=== PATIENT | male | born 1970 | race Caucasian/White ===

== ENCOUNTER 2020-07-08 19:02 | Emergency (ER) | payer BC, OTHER ==
[2020-07-08] MEDS ORDERED: Alum Hydrox/Mag Hydrox/Simeth 15 ML, Lidocaine 2% 15 ML PO ONE ×2 (21:12)
[2020-07-08] MEDS ORDERED: Ondansetron 4 MG Tab.DIS PO ONE (21:13)
--- NOTE | 2020-07-08 21:15 | EDM.PDOC ---
ED HPI GENERAL MEDICAL PROBLEM - General Chief Complaint: Abdominal Pain Stated Complaint: ABDOMINAL PAIN Time Seen by Provider: 07/08/20 21:07 Source of Information: Reports: Patient, Family, RN Notes Reviewed History Limitations: Reports: No Limitations - History of Present Illness INITIAL COMMENTS - FREE TEXT/NARRATIVE: 49-year-old gentleman presents emergency department today complaint of epigastric pain, he states the pain came on suddenly at about 330 this afternoon has lightened up some initially was a 10 out of 10 now is about 7 out of 10 does have a history of gastric bypass no history of coronary artery disease - Related Data Allergies Allergy/AdvReac Type Severity Reaction Status Date / Time Penicillins Allergy Vomiting Verified 07/08/20 19:36 sucralfate [From Carafate] Allergy Vomiting Verified 07/08/20 19:36 Home Meds: Home Meds Losartan [Cozaar] 1 tab PO DAILY 07/08/20 [History] Sertraline [Zoloft] 1 tab PO DAILY 07/08/20 [History] buPROPion [Wellbutrin SR] 1 tab PO DAILY 07/08/20 [History] Past Medical History Cardiovascular History: Reports: Hypertension Psychiatric History: Reports: Depression - Past Surgical History GI Surgical History: Reports: Bariatric Procedure, Cholecystectomy Social & Family History - Tobacco Use Tobacco Use Status *Q: Never Tobacco User - Alcohol Use Number of Drinks Per Day: 8 ED ROS GENERAL - Review of Systems Review Of Systems: See Below Constitutional: Reports: No Symptoms Respiratory: Reports: No Symptoms Cardiovascular: Reports: No Symptoms GI/Abdominal: Reports: Abdominal Pain. Denies: Nausea, Vomiting : Reports: No Symptoms ED EXAM, GI/ABD - Physical Exam Exam: See Below Exam Limited By: No Limitations General Appearance: Alert, WD/WN, No Apparent Distress Respiratory/Chest: No Respiratory Distress, Lungs Clear, Normal Breath Sounds, No Accessory Muscle Use, Chest Non-Tender Cardiovascular: Regular Rate, Rhythm, No Murmur GI/Abdominal Exam: Soft, Tender (Epigastric region) Extremities: No Pedal Edema Course - Vital Signs Last Recorded V/S: Last Vital Signs Temp 97.1 F 07/08/20 19:44 Pulse 83 07/08/20 19:44 Resp 14 07/08/20 19:44 BP 157/91 H 07/08/20 19:44 Pulse Ox 98 07/08/20 19:44 - Orders/Labs/Meds Orders: Active Orders 24 hr Category Date Time Status Peripheral IV Care [RC] . DIRECTED Care 07/08/20 23:18 Active Pantoprazole [ProTONIX IV] Med 07/09/20 01:00 Active 80 mg IVPUSH .BOLUS Sodium Chloride 0.9% [Normal Saline] 1,000 ml Med 07/08/20 23:30 Active IV ASDIRECTED Sodium Chloride 0.9% [Normal Saline] 100 ml Med 07/08/20 23:30 Active IV ASDIRECTED Sodium Chloride 0.9% [Saline Flush] Med 07/08/20 23:18 Active 10 ml FLUSH ASDIRECTED PRN Peripheral IV Insertion Adult [OM.PC] Urgent Oth 07/08/20 23:18 Ordered Medication Orders Sodium Chloride (Normal Saline) 1,000 mls @ 500 mls/hr IV ASDIRECTED VENECIA Last Admin: 07/08/20 23:42 Dose: 500 mls/hr Documented by: GOSIA Sodium Chloride (Normal Saline) 100 mls @ 3.5 mls/sec IV ASDIRECTED VENECIA Last Admin: 07/09/20 00:02 Dose: 3.5 mls/sec Documented by: ALL Pantoprazole Sodium (Protonix Iv) 80 mg IVPUSH .BOLUS VENECIA Sodium Chloride (Saline Flush) 10 ml FLUSH ASDIRECTED PRN PRN Reason: Keep Vein Open Last Admin: 07/09/20 00:02 Dose: 10 ml Documented by: ALL Labs: Laboratory Tests 07/08/20 07/08/20 07/08/20 Range/Units 21:22 21:24 21:24 WBC 5.3 (4.5-11.0) K/uL RBC 3.99 L (4.30-5.90) M/uL Hgb 13.6 (12.0-15.0) g/dL Hct 39.6 L (40.0-54.0) % MCV 99 H (80-98) fL MCH 34 H (27-31) pg MCHC 34 (32-36) % Plt Count 108 L (150-400) K/uL Neut % (Auto) 70 H (36-66) % Lymph % (Auto) 20 L (24-44) % [place] % (Auto) 8 H (2-6) % Eos % (Auto) 1 L (2-4) % Baso % (Auto) 0 (0-1) % Sodium 133 L (140-148) mmol/L Potassium 4.2 (3.6-5.2) mmol/L Chloride 97 L (100-108) mmol/L Carbon Dioxide 25 (21-32) mmol/L Anion Gap 15.2 H (5.0-14.0) mmol/L BUN 13 (7-18) mg/dL Creatinine 1.2 (0.8-1.3) mg/dL Est Cr Clr Drug Dosing 86.58 mL/min Estimated GFR (MDRD) > 60 (>60) Glucose 89 (74-106) mg/dL Lactic Acid (0.4-2.0) mmol/L Calcium 8.5 (8.5-10.1) mg/dL Total Bilirubin 0.6 (0.2-1.0) mg/dL AST 115 H (15-37) U/L ALT 118 H (12-78) U/L Alkaline Phosphatase 104 (46-116) U/L Troponin I < 0.017 (0.000-0.056) ng/mL Total Protein 6.7 (6.4-8.2) g/dL Albumin 3.6 (3.4-5.0) g/dL Globulin 3.1 (2.3-3.5) g/dL Albumin/Globulin Ratio 1.2 (1.2-2.2) Lipase 151 (73-393) U/L 07/08/20 Range/Units 21:24 WBC (4.5-11.0) K/uL RBC (4.30-5.90) M/uL Hgb (12.0-15.0) g/dL Hct (40.0-54.0) % MCV (80-98) fL MCH (27-31) pg MCHC (32-36) % Plt Count (150-400) K/uL Neut % (Auto) (36-66) % Lymph % (Auto) (24-44) % [place] % (Auto) (2-6) % Eos % (Auto) (2-4) % Baso % (Auto) (0-1) % Sodium (140-148) mmol/L Potassium (3.6-5.2) mmol/L Chloride (100-108) mmol/L Carbon Dioxide (21-32) mmol/L Anion Gap (5.0-14.0) mmol/L BUN (7-18) mg/dL Creatinine (0.8-1.3) mg/dL Est Cr Clr Drug Dosing mL/min Estimated GFR (MDRD) (>60) Glucose (74-106) mg/dL Lactic Acid 1.8 (0.4-2.0) mmol/L Calcium (8.5-10.1) mg/dL Total Bilirubin (0.2-1.0) mg/dL AST (15-37) U/L ALT (12-78) U/L Alkaline Phosphatase (46-116) U/L Troponin I (0.000-0.056) ng/mL Total Protein (6.4-8.2) g/dL Albumin (3.4-5.0) g/dL Globulin (2.3-3.5) g/dL Albumin/Globulin Ratio (1.2-2.2) Lipase (73-393) U/L Meds: Medications Generic Name Dose Route Start Last Admin Trade Name Freq PRN Reason Stop Dose Admin Sodium Chloride 1,000 mls @ 500 mls/hr 07/08/20 23:30 07/08/20 23:42 Normal Saline IV 500 mls/hr ASDIRECTED VENECIA Administration Sodium Chloride 100 mls @ 3.5 mls/sec 07/08/20 23:30 07/09/20 00:02 Normal Saline IV 3.5 mls/sec ASDIRECTED VENECIA Administration Pantoprazole Sodium 80 mg 07/09/20 01:00 Protonix Iv IVPUSH .BOLUS VENECIA Sodium Chloride 10 ml 07/08/20 23:18 07/09/20 00:02 Saline Flush FLUSH 10 ml ASDIRECTED PRN Administration Keep Vein Open Discontinued Medications Generic Name Dose Route Start Last Admin Trade Name Freq PRN Reason Stop Dose Admin Al Hydroxide/Mg Hydroxide 15 0 ml 07/08/20 21:12 07/08/20 21:19 ml/ Lidocaine HCl 15 ml PO 07/08/20 21:13 30 ml ONETIME ONE Administration Fentanyl 50 mcg 07/08/20 23:18 07/08/20 23:37 Sublimaze IVPUSH 07/08/20 23:19 50 mcg ONETIME ONE Administration Iopamidol 148 ml 07/08/20 23:23 07/09/20 00:01 Isovue-300 (61%) IV 07/08/20 23:24 148 ml ONETIME ONE Administration Ondansetron HCl 4 mg 07/08/20 21:13 07/08/20 21:21 Zofran Odt PO 07/08/20 21:14 4 mg ONETIME ONE Administration Prochlorperazine Edisylate 5 mg 07/08/20 23:25 07/08/20 23:38 Compazine IVPUSH 07/08/20 23:26 5 mg ONETIME ONE Administration Sodium Chloride 10 ml 07/08/20 23:23 07/08/20 23:37 Saline Flush FLUSH 07/08/20 23:24 10 ml ONETIME ONE Administration Departure - Departure Time of Disposition: 01:04 Disposition: Home, Self-Care 01 Condition: Fair Clinical Impression: Abdominal pain Qualifiers: Abdominal location: epigastric Qualified Code(s): R10.13 - Epigastric pain - Discharge Information Instructions: Abdominal Pain, Adult, [id number] Referrals: Marcy Bonilla MD [Primary Care Provider] - Forms: ED Department Discharge Additional Instructions: Start the Protonix 20 mg once a day can start tomorrow, use the Percocet as needed for pain control, please call Dr. Dias's clinic on Friday for an appointment time Sepsis Event Note (ED) - Evaluation Sepsis Screening Result: No Definite Risk - Focused Exam Vital Signs: Vital Signs Temp Pulse Resp BP Pulse Ox 07/08/20 19:44 97.1 F 83 14 157/91 H 98 - My Orders Last 24 Hours: My Active Orders 07/08/20 23:18 Peripheral IV Care [RC] . DIRECTED Sodium Chloride 0.9% [Saline Flush] 10 ml FLUSH ASDIRECTED PRN Peripheral IV Insertion Adult [OM.PC] Urgent 07/08/20 23:30 Sodium Chloride 0.9% [Normal Saline] 1,000 ml IV ASDIRECTED Sodium Chloride 0.9% [Normal Saline] 100 ml IV ASDIRECTED 07/09/20 01:00 Pantoprazole [ProTONIX IV] 80 mg IVPUSH .BOLUS - Assessment/Plan Last 24 Hours: My Active Orders 07/08/20 23:18 Peripheral IV Care [RC] . DIRECTED Sodium Chloride 0.9% [Saline Flush] 10 ml FLUSH ASDIRECTED PRN Peripheral IV Insertion Adult [OM.PC] Urgent 07/08/20 23:30 Sodium Chloride 0.9% [Normal Saline] 1,000 ml IV ASDIRECTED Sodium Chloride 0.9% [Normal Saline] 100 ml IV ASDIRECTED 07/09/20 01:00 Pantoprazole [ProTONIX IV] 80 mg IVPUSH .BOLUS Plan: Assessment Acuity = acute Site and laterality = epigastric pain Etiology = unknown Manifestations = none Location of injury = Home Lab values = CBC, CMP unremarkable except for AST elevated 115 ALT elevated 118 consistent with elevated liver enzymes troponin is negative CT scan shows no acute process Plan Call discussed case Dr. Dias at 00 30 recommended IV Protonix follow-up with him in clinic on Friday or Friday next week prescription written for oxycodone 5/325 1 tab p.o. 3 times daily as needed total #10 provided for additional pain control This note was dictated using [employer] voice recognition software please call with any questions on syntax or grammar.
[2020-07-08] MEDS ORDERED: fentaNYL 100 MCG/2 ML SDV IVPUSH ONE (23:18)
[2020-07-08] MEDS ORDERED: Sodium Chloride 0.9% 10 ML Syringe FLUSH PRN (23:18)
[2020-07-08] MEDS ORDERED: Iopamidol 612 MG/ML 500 ML Multipack Bottle IV ONE (23:23)
[2020-07-08] MEDS ORDERED: Sodium Chloride 0.9% 10 ML Syringe FLUSH ONE (23:23)
[2020-07-08] MEDS ORDERED: Prochlorperazine 10 MG/2 ML SDV IVPUSH ONE (23:25)
[2020-07-08] MEDS ORDERED: Sodium Chloride 0.9% 100 ML IV SCH (23:30)
[2020-07-08] MEDS ORDERED: Sodium Chloride 0.9% 1,000 ML IV SCH (23:30)
--- NOTE | 2020-07-09 00:44 | CRLCT ---
INDICATION: Epigastric pain TECHNIQUE: CT abdomen and pelvis acquired with 148 cc Isovue-300 IV contrast. COMPARISON: None FINDINGS: Lower chest: Unremarkable. Liver: Hepatic steatosis. Spleen: Unremarkable. Pancreas: Unremarkable. Gallbladder and bile ducts: S/p cholecystectomy. Adrenal glands: Unremarkable. Kidneys: Unremarkable. GI tract: Status post gastric bypass procedure. Appendix is not seen. No bowel wall thickening. Vascular structures: Unremarkable. Lymph nodes: Unremarkable. Miscellaneous: Nonspecific fat stranding in the mesenteric root. No free air or significant free fluid. Small fat containing left inguinal hernia. Pelvic Organs: Unremarkable. Bones: Unremarkable for age. IMPRESSION: Nonspecific fat stranding in the mesenteric root of unknown acuity. There is no bowel wall thickening. Status post gastric bypass procedure and cholecystectomy. Hepatic steatosis. Small fat containing left inguinal hernia. Please note that all CT scans at this facility use dose modulation, iterative reconstruction, and/or weight-based dosing when appropriate to reduce radiation dose to as low as reasonably achievable. Dictated by Marcy Chapman MD @ Jul 09 2020 12:35AM Signed by Dr. Marcy Chapman @ Jul 09 2020 12:43AM
[2020-07-09] MEDS ORDERED: Pantoprazole 40 MG Vial IVPUSH SCH (01:00)
== END 2020-07-09 01:17 | disposition home or self-care (01) ==
LOC: JP.ED 19:02
DX: R10.13 Epigastric pain (principal); I10 Essential (primary) hypertension; F32.9 Major depressive disorder, single episode, unspecified; Z90.49 Acquired absence of other specified parts of digestive tract; Z88.0 Allergy status to penicillin; Z88.8 Allergy status to other drugs, medicaments and biological substances; Z79.899 Other long term (current) drug therapy
CPT/HCPCS: 36415; 74177; 80053; 83605; 83690; 84484; 85025; 96374; 96375; 99284; A9270; J0780; J3010; J7030; Q9967